=== PATIENT | female | born 1990 | race Caucasian/White ===

== ENCOUNTER 2017-02-15 17:05 | Emergency (ER) | payer MEDICAID ==
[~2017-02-15] VITALS: Ht 172.7 cm; Wt 128.4 kg
[~2017-02-15 17:05] MED LIST: CYCL5TAB PO; DICL-176 PO; MEDR150I IM; NOR10T PO; PREG150C PO
[2017-02-15 17:13] VITALS: BP 120/98
[2017-02-15 17:40] LABS: Urine Bilirubin Negative (Negative); Urine Blood Negative /uL (Negative); Urine Color Yellow (Yellow); Urine Glucose Normal (Normal); Urine Ketone Negative (Negative); Urine Mucus FEW (None Seen); Urine Nitrite Negative (Negative); Urine RBC 1 /hpf (0 - 4); Urine Squamous Epithelial Cell FEW /hpf (<5); Urine Urobilinogen Normal (Negative)
[2017-02-15] MEDS ORDERED: diphenhdrAMINE HCL 25 MG CAP PO ONE (18:45)
[2017-02-15] MEDS ORDERED: PROMETHAZINE HCL 25 MG/ML 1ML IM ONE (18:45)
[2017-02-15] MEDS ORDERED: KETOROLAC TROMETH 60MG/2ML VIAL IM ONE (18:45)
== END 2017-02-15 19:07 | disposition home or self-care (01) ==
LOC: ER 17:06
DX: N39.0 Urinary tract infection, site not specified (principal); G43.909 Migraine, unspecified, not intractable, without status migrainosus; M79.7 Fibromyalgia; Z90.49 Acquired absence of other specified parts of digestive tract
CPT/HCPCS: 81001; 81025; 96372; 99284; J1885; J2550